=== PATIENT | female | born 1980 | race Caucasian/White ===

== ENCOUNTER 2016-11-22 00:01 | Emergency (ER) | payer OTHER ==
[~2016-11-22] VITALS: Ht 172.7 cm; Wt 81.9 kg
[~2016-11-22 00:01] MED LIST: ALBUTEROL17 GM IH; AMITRIPTYLINE H25 MG PO; ASMANEX HFA13 G1 IH; BACLOFEN20 MG PO; BACTRIM,SEPT1 TABLET PO; BUPROPION XL150 MG PO; GABAPENTIN800 MG PO; HYDROCODON-ACE1 EAC9 PO; IBUPROFEN800 MG PO; KEFLEX500 MG PO; LORATADINE10 M2 PO; MELOXICAM15 MG PO; MOTRIN800 MG PO; MOVANTIK25 MG PO; MUPIROCIN22 GM TP; OXYCODONE HCL10 MG PO; PREDNISONE10 MG PO; PROMOLAXIN100 MG PO; PROTONIX20 MG PO; SUMATRIPTAN SU100 MG PO; TIZANIDINE HCL4 M1 PO; TREXIMET 85-1 TABLET PO; VENTOLIN HFA18 GM IH
[2016-11-22 04:18] LABS: BASOPHIL COUNT 0.1 K/uL (0-0.1); EOSINOPHIL (%) 2.8 % (0-5); EOSINOPHIL COUNT 0.3 K/uL (0-0.3); HEMATOCRIT 42.5 % (36.0-46.0); IMMATURE GRANULOCYTE (%) 0.4 % (0.0-0.7); INSTRUMENT ABS NEUTROPHIL CT 4.7 K/uL; LYMPHOCYTE COUNT 3.5 K/uL (1.0-2.8); MCH 29.4 PG (29.0-34.0); MCHC 32.9 G/DL (30.0-36.0); MCV 89.1 FL (83-99); MEAN PLAT.VOLUME 9.8 uM^3 (9.5-12.4); MONOCYTE (%) 8.3 % (3-12); MONOCYTE COUNT 0.8 K/uL (0-0.8); NEUTROPHIL (%) 50.5 % (45-76); NEUTROPHIL COUNT 4.7 K/uL (1.8-6.4); PLATELET COUNT 281 K/uL (156-360); RBC DIS.WIDTH-CV 12.7 % (11.8-14.6); RBC DIS.WIDTH-SD 41.8 % (39-53); RED BLOOD COUNT 4.77 M/uL (3.80-5.20); WHITE BLOOD COUNT 9.4 K/uL (4.1-10.2)
[2016-11-22 04:31] LABS: CHLORIDE 105 mEq/L (99-109); POTASSIUM 5.2 mEq/L (3.7-5.4); SODIUM 140 mEq/L (136-147)
[2016-11-22 04:32] LABS: GLUCOSE 92 mg/dL (70-99)
[2016-11-22 04:34] LABS: ANION GAP 11 MEQ/L (2-14)
[2016-11-22 04:36] LABS: GFR ESTIMATE (CALCULATED) > 59 mL/min/
[2016-11-22 04:37] LABS: UREA NITROGEN (BUN) 14 mg/dL (9-23)
[2016-11-22] MEDS ORDERED: MOTRIN600 MG PO (06:05)
[2016-11-22 06:18] VITALS: BP 98/60
== END 2016-11-22 06:20 | disposition home or self-care (01) ==
LOC: EME 00:01
PROVIDERS: Emergency Medicine
DX: M54.5 Low back pain (principal); G89.29 Other chronic pain; Z87.828 Personal history of other (healed) physical injury and trauma; Z87.891 Personal history of nicotine dependence
CPT/HCPCS: 72132; 80048; 81003; 85025; 99281; 99284; J1100; J3010; J7030

== ENCOUNTER 2016-11-23 15:34 | Emergency (ER) | payer OTHER ==
[~2016-11-23] VITALS: Ht 172.7 cm; Wt 82.0 kg
[~2016-11-23 15:34] MED LIST changes: +MOTRIN600 MG PO
[2016-11-23 18:56] VITALS: BP 105/71
== END 2016-11-23 18:57 | disposition home or self-care (01) ==
LOC: EME 15:34
DX: S40.022A Contusion of left upper arm, initial encounter (principal); T80.89XA Other complications following infusion, transfusion and therapeutic injection, initial encounter; Y84.8 Other medical procedures as the cause of abnormal reaction of the patient, or of later complication, without mention of misadventure at the time of the procedure; Y92.238 Other place in hospital as the place of occurrence of the external cause; F17.200 Nicotine dependence, unspecified, uncomplicated; Z71.6 Tobacco abuse counseling
CPT/HCPCS: 93971; 99281; 99283

== ENCOUNTER 2017-05-27 23:05 | Emergency (ER) | payer OTHER ==
[~2017-05-27] VITALS: Ht 172.7 cm; Wt 86.3 kg
[2017-05-28] MEDS ORDERED: MOTRIN800 MG PO (03:17)
[2017-05-28] MEDS ORDERED: ZOFRAN ODT8 MG PO (03:17)
[2017-05-28] MEDS ORDERED: FIORICET 50-301 EAC1 PO (03:17)
[2017-05-28 03:59] VITALS: BP 111/68
== END 2017-05-28 04:01 | disposition home or self-care (01) ==
LOC: EME 23:05
DX: S00.83XA Contusion of other part of head, initial encounter (principal); S00.31XA Abrasion of nose, initial encounter; S16.1XXA Strain of muscle, fascia and tendon at neck level, initial encounter; S06.0X0A Concussion without loss of consciousness, initial encounter; Y04.2XXA Assault by strike against or bumped into by another person, initial encounter; J45.909 Unspecified asthma, uncomplicated; Z87.891 Personal history of nicotine dependence; Z88.5 Allergy status to narcotic agent; Z88.8 Allergy status to other drugs, medicaments and biological substances
CPT/HCPCS: 70450; 70486; 72125; 99281; 99283